=== PATIENT | male | born 1965 | race Two or more races ===

== ENCOUNTER 2017-09-17 10:43 | Emergency (ER) | payer SELFPAY ==
[~2017-09-17] VITALS: Ht 165.1 cm; Wt 74.8 kg
--- NOTE | 2017-09-17 11:00 | NUR ---
ASSUME PT CARE. RESTING IN BED. HERE FOR ETOH. L KNEE ABRASION NOTED. NO OBVIOUS HEAD TRAUMA. SEEN BY ERMD. STABLE VITALS. WILL CONT TO MONITOR.
[2017-09-17 11:19] LABS: BASOPHILS % (AUTO) 0.7 % (0.0-2.0); EOSINOPHILS # (AUTO) 0.1 /CMM (0.0-0.7); EOSINOPHILS % (AUTO) 1.3 % (0.0-6.0); HEMATOCRIT 36 % (39-51); HEMOGLOBIN 12.4 g/dL (13.5-17.5); LYMPHOCYTES # (AUTO) 2.8 /CMM (0.8-4.8); LYMPHOCYTES % (AUTO) 39.2 % (20.0-44.0); MEAN CORPUSCULAR HEMOGLOBIN 30 PG (26.0-33.0); MEAN CORPUSCULAR HGB CONC 34 g/dl (31.0-36.0); MEAN CORPUSCULAR VOLUME 88 fL (80-96); MONOCYTES # (AUTO) 0.5 /CMM (0.1-1.30); MONOCYTES % (AUTO) 6.7 % (2.0-12.0); NEUTROPHILS # (AUTO) 3.8 /CMM (1.8-8.9); NEUTROPHILS % (AUTO) 52.1 % (43.0-81.0); PLATELET COUNT (AUTO) 165 /CMM (150-450); RDW COEFFICIENT OF VARIATION 13.1 (11.5-15.0); RED BLOOD CELL COUNT(AUTO) 4.09 MIL/uL (4.5-6.0); WHITE BLOOD COUNT (AUTO) 7.2 K/uL (4.3-11.0)
--- NOTE | 2017-09-17 11:19 | NUR ---
PT TO RADIOLOGY FOR HEAD CT SCAN VIA [facility].
--- NOTE | 2017-09-17 11:26 | NUR ---
UNABLE TO TAKE CT SCAN. PT UNABLE TO STAY STILL TRYING TO GET OFF THE BED. DR AGRAWAL AWARE.
[2017-09-17 11:41] LABS: ALBUMIN 3.7 g/dL (3.4-5.0); BILIRUBIN,DIRECT 0.1 mg/dL (0.0-0.2); BILIRUBIN,TOTAL 0.3 mg/dL (0.2-1.0); CALCIUM, SERUM 9.1 mg/dL (8.5-10.1); CREATININE 0.7 mg/dL (0.6-1.3); POTASSIUM 3.9 mmol/L (3.5-5.1); TOTAL PROTEIN, SERUM 7.4 g/dL (6.4-8.2)
[2017-09-17 11:46] LABS: SALICYLATE 0.9 mg/dL (2.8-20.0)
[2017-09-17 12:22] LABS: APPEARANCE,URINE Clear (CLEAR); BILIRUBIN,URINE Negative (NEGATIVE); BLOOD, URINE Trace-lysed Ery/uL (NEGATIVE); KETONES,URINE Negative (NEGATIVE); LEUKOCYTE ESTERASE ,URINE Negative (NEGATIVE); NITRITE, URINE Negative (NEGATIVE); PH,URINE 5.5 (5.0-8.0); PROTEIN,URINE Negative (NEGATIVE); UGLUCOSE 100 MG/DL mg/dL (NEGATIVE); UROBILINOGEN,URINE 0.2 EU/dL (0.2)
[2017-09-17 12:23] LABS: COLOR,URINE STRAW (YELLOW)
[2017-09-17 12:31] LABS: RBC,URINE 0-2 /HPF (0-2)
[2017-09-17 12:32] LABS: BACTERIA,URINE None seen /HPF (None Seen); SQUAMOUS EPITHELIAL CELL,UR Few /HPF (None Seen); WBC,URINE 0-3 /HPF (0-3)
--- NOTE | 2017-09-17 14:44 | NUR ---
MEAL TRAY PROVIDED. AMBULATORY W/ STABLE CONDITION. D/C HOME IN STABLE CONDITION.
[2017-09-17 14:46] VITALS: BP 132/75
== END 2017-09-17 14:46 | disposition home or self-care (01) ==
LOC: ER 10:45
DX: F10.921 Alcohol use, unspecified with intoxication delirium (principal); Z59.0 Homelessness; Y90.9 Presence of alcohol in blood, level not specified
CPT/HCPCS: 36415; 80048; 80076; 80305; 80329; 81001; 85025; 99284; A4606; G0480 ×2; Z7610; 81000-TC